=== PATIENT | female | born 1995 | race Caucasian/White ===

== ENCOUNTER 2017-12-19 20:00 | Inpatient (IN) | payer MEDICAID ==
[~2017-12-19] VITALS: Ht 152.4 cm; Wt 63.4 kg
--- NOTE | ~2017-12-19 | OP ---
PATIENT NAME: JONNY CONWAY MEDICAL RECORD: [id number] :96 LOCATION:[id number] ADMISSION DATE:12/19/17 SURGEON: GERBER BUSH MD DATE OF OPERATION: 12/20/2017 PREOPERATIVE DIAGNOSES: 1. at 39 weeks' gestation. 2. Arrest of descent. POSTOPERATIVE DIAGNOSES: 1. at 39 weeks' gestation. 2. Arrest of descent. PROCEDURE: Primary low transverse section. SURGEON: Gerber Bsuh MD ANESTHESIOLOGIST: Dr. Rivera. ANESTHETIC: Continuous lumbar epidural. FINDINGS: Viable male with caput noted in the vertex presentation, Apgars are 4, 6 and 7. A large caput succedaneum is noticed. Terminal meconium. Weight 3135 grams. Otherwise, unremarkable anatomy was seen here. SPECIMENS REMOVED: Placenta. SPECIMEN DISPOSITION: Discarded. ESTIMATED BLOOD LOSS: 850 cc. FLUIDS: 1200 cc of lactated Ringer's. URINE: 60 cc of concentrated urine. COMPLICATIONS: None. DRAIN: Juarez to gravity. INDICATIONS: The patient is a 22-year-old female at term, undergoing induction of labor. The patient progresses into active labor, but failed to have further progression in the first stage with increasing caput of the vertex. The patient is consented for primary low transverse section. DESCRIPTION OF PROCEDURE: After informed consent was assured, the patient was taken to the operating room where anesthetic was assessed and found to be adequate. A low transverse incision was made over the abdomen after the patient was prepped and draped. This incision was carried down to the underlying layer of fascia, which was opened in the midline and extended laterally. Rectus bellies were dissected free and then the rectus bellies were in the midline. Peritoneum was entered and the rectus bellies further . A DeLee all-purpose retractor was inserted and low transverse hysterotomy was performed. was delivered onto the abdomen atraumatically. Cord was doubly clamped and cut and the was passed to the attendant. The uterus is now closed in a double layered fashion. After this had been accomplished, OPERATIVE REPORT [id number] JONNY CONWAY the pelvis was irrigated. The peritoneum and rectus bellies were now reapproximated and the fascia was closed with looped PDS. The subcutaneous tissue was irrigated. Bleeding vessels cauterized and then skin reapproximated. Sterile dressing is applied. Sponge, lap, and needle counts correct times 2. The patient went to the recovery area in stable condition. TRANSINT:[id number] Voice Confirmation ID: [id number] DOCUMENT ID: [id number] GERBER BUSH MD at 1631 CC: [id number] DICTATION DATE: 01/11/18 1334 THAI MASSEUR: 01/11/18 1534 DIS IN 12/22/17 [id number] [place] [address]
[2017-12-19 22:53] LABS: HEMATOCRIT 35.7 % (36.0-48.0); HEMOGLOBIN 12.7 g/dL (12-16); MCH 33.2 pg (26.0-34.0); MCHC 35.6 g/dL (31.0-37.0); MCV 93.5 fL (80.0-100.0); MEAN PLATELET VOLUME 10.3 fL (7.4-10.4); RBC 3.82 10x6/uL (4.00-5.40); RDW 12.7 % (11.5-14.5); WBC 8.1 10x3/uL (4.8-10.8)
[2017-12-19 23:15] LABS: APPEARANCE HAZY (CLEAR); BILIRUBIN NEGATIVE (NEGATIVE); COLOR YELLOW (YELLOW); GLUCOSE NEGATIVE (NEGATIVE); KETONE NEGATIVE (NEGATIVE); NITRITE NEGATIVE (NEGATIVE); PROTEIN NEGATIVE (NEGATIVE); SPECIFIC GRAVITY 1.015 (1.005-1.020); UROBILINOGEN NORMAL (NORMAL)
[2017-12-19 23:16] LABS: AMORPHOUS SEDIMENT <1+ /lpf (NONE SEEN); BACTERIA FEW /hpf (NONE SEEN); EPITHELIAL CELLS 0-5 /hpf (0-5); RED CELLS - URINE 0-5 /hpf (0-5); WHITE CELLS - URINE 0-5 /hpf (0-5)
[2017-12-19 23:37] VITALS: BP 121/80; Ht 152.4 cm; Wt 63.4 kg
[2017-12-20] VITALS (8 sets, daily range): BP systolic 120–137; BP diastolic 68–83
[2017-12-21] VITALS (7 sets, daily range): BP systolic 115–129; BP diastolic 60–84
[2017-12-21 07:31] LABS: RAPID PLASMA REAGIN Non Reactive (Non Reactive)
[2017-12-21 07:40] LABS: BASOPHILS 0 % (0-2); EOSINOPHILS 0 % (0-7); HEMATOCRIT 29.8 % (36.0-48.0); HEMOGLOBIN 10.2 g/dL (12-16); IMMATURE GRANULOCYTES 0.3 % (0-5); LYMPHOCYTES 14.6 % (15-50); MCHC 34.2 g/dL (31.0-37.0); MCV 93.4 fL (80.0-100.0); MEAN PLATELET VOLUME 10.3 fL (7.4-10.4); MONOCYTES 7.5 % (2-11); NEUTROPHILS 77.6 % (40-80); RBC 3.19 10x6/uL (4.00-5.40); RDW 12.8 % (11.5-14.5)
[2017-12-21 07:41] LABS: PLATELET COUNT 176 10x3/uL (130-400); WBC 14.4 10x3/uL (4.8-10.8)
[2017-12-22 04:48] VITALS: BP 126/84
[2017-12-22 08:00] VITALS: BP 119/74
[2017-12-22] MEDS ORDERED: IBUPROFEN800 MG PO (12:32)
[2017-12-22] MEDS ORDERED: PERCOCET 7.5/321 TAB PO (12:32)
[2017-12-22] MEDS ORDERED: COLACE100 MG (12:33)
== END 2017-12-22 12:48 | disposition home or self-care (01) | DRG 787 ==
LOC: D.LD 20:00
PROVIDERS: Obstetrics & Gynecology
PROC: 10D00Z1 Extraction of Products of Conception, Low, Open Approach (ICD-10-PCS; principal; 2017-12-20 18:57)
DX: O76 Abnormality in fetal heart rate and rhythm complicating labor and delivery (principal); D62 Acute posthemorrhagic anemia; Z3A.39 39 weeks gestation of pregnancy; Z37.0 Single live birth; O66.5 Attempted application of vacuum extractor and forceps; O99.02 Anemia complicating childbirth